=== PATIENT | male | born 1990 | race Caucasian/White ===

== ENCOUNTER 2016-08-08 07:27 | Emergency (ER) | payer OTHER ==
[2016-08-08 07:58] VITALS: BP 124/86
--- NOTE | 2016-08-08 08:32 | RAD ---
Indication: Nasal injury. 3 views of the nasal bones demonstrates incongruity of the nasal arch. A nondisplaced fracture should be considered. IMPRESSION: There may be undisplaced fracture of the nasal arch.
--- NOTE | 2016-08-08 09:59 | UC ---
Melly Mcmillan [place], [facility]ed for [facility] on 08/08/16 at 0805 . Minor Trauma HPI - HPI Summary HPI Summary: In Room note: Patient is a 26 y/o male who presents to the s/p trauma to the nose since earlier today. Pt was playing with his dog when his dog ran into his nose and pt heard a crunch. He reports edema and a crooked appearance. Pt denies past injury to nose. Pt also denies hx of hospitalization. MD note: VSS, 3/10 pain, nonsmoker, visit hx non-contributory. Nurses note: About 30 min ago pt's dog ran into his nose and he heard a "crunch." pt denies bleeding, but some bruising is noted. - History of Current Complaint Chief Complaint: UCTrauma Stated Complaint: NOSE INJURY Time Seen by Provider: 08/08/16 08:02 Hx Obtained From: Patient Onset/Duration: Gradual Onset, Lasting Hours, Still Present Severity Initially: Moderate Severity Currently: Moderate Pain Intensity: 3 Pain Scale Used: 0-10 Numeric Mechanism Of Injury: Blunt Trauma Aggravating Factor(s): Nothing Alleviating Factor(s): Nothing Associated Signs And Symptoms: Positive: Swelling - Allergies/Home Medications Allergies/Adverse Reactions: Allergies Allergy/AdvReac Type Severity Reaction Status Date / Time No Known Allergies Allergy Verified 08/08/16 07:58 Home Medications: Home Medications NK [No Home Medications Reported] 08/08/16 [History Confirmed 08/08/16] PMH/Surg Hx/FS Hx/Imm Hx Endocrine History Of: Denies: Diabetes Cardiovascular History Of: Denies: Hypertension, Pacemaker/ICD Respiratory History Of: Denies: Asthma - Surgical History Surgical History: Yes Surgery Procedure, Year, and Place: HERNIA REPAIR INFANT - Family History Known Family History: Positive: Cardiac Disease, Other - [place]. - Social History Alcohol Use: Occasionally Substance Use Type: None Smoking Status (MU): Never Smoked Tobacco Review of Systems Constitutional: Negative ENT: Other - Injury to nose. See HPI. All Other Systems Reviewed And Are Negative: Yes Physical Exam Triage Information Reviewed: Yes Appearance: Well-Appearing, No Pain Distress, Well-Nourished Vital Signs: Initial Vital Signs Temp 97.9 F 08/08/16 07:54 Pulse 53 08/08/16 07:54 Resp 16 08/08/16 07:54 BP 124/86 08/08/16 07:54 Pulse Ox 100 08/08/16 07:54 Vital Signs Reviewed: Yes Eyes: Positive: Conjunctiva Clear ENT: Positive: Hearing grossly normal, Pharynx normal, TMs normal, Other: - NOSE : MILD BILATERAL SWELLING AND THE SUGGESTION OF SLIGHT DISTRACTION OF THE NASAL BRIDGE TO THE LEFT, BUT THIS IS DIFFICULT TO APPRECIATE DUE TO SWELLING. THERE IS NO EPISTAXIS, BOTH NARES ARE CLEAR AND THERE NO SIGN OF OBSTRUCTION OR HEMATOMA. BREATHING NORMAL TO BOTH NARES. NO INJURY TO JAW MAXILLARY OR MANDIBLE.. Negative: Muffled/hoarse voice Neck: Positive: Supple, No Lymphadenopathy Respiratory: Positive: Chest non-tender, Lungs clear, Normal breath sounds, No respiratory distress Cardiovascular: Positive: RRR, No Murmur Abdomen Description: Positive: Nontender, No Organomegaly, Soft Bowel Sounds: Positive: Present Musculoskeletal: Positive: Strength Intact Neurological: Positive: Alert Psychological: Positive: Age Appropriate Behavior Skin: Negative: rashes Diagnostics - Radiology NASAL BONE Radiology Interpretation Completed By: Radiologist - IMPRESSION: There may be undisplaced fracture of the nasal arch. Minor Trauma Course/Dx - Course Course Of Treatment: Medications have been included in the original chart and reviewed. Differential: Contusion vs fracture. Patient is Urgent/Emergent. BP elevated due to current condition w/o HTN in PMH. - Differential Dx/Diagnosis Provider Diagnoses: Nondisplaced fracture of nasal arch. Discharge - Discharge Plan Condition: Stable Disposition: HOME Patient Education Materials: Nasal Fracture (ED) Referrals: No Primary Care Phys,NOPCP [Primary Care Provider] - Additional Instructions: Thank you for helping us improve patient care by filling out the My Point Survey. WE DISCUSSED: Unless you have any complications (see discharge information), this is a cosmetic question, as to whether you need your nose straightened. It may be slightly pushed to the left but it's difficult to tell because of the swelling. Use ice to the area for the swelling. My suggestion is that you call and ENT physician, if you wish follow up. CALL THIS NUMBER AT THE HOSPITAL AND THEY WILL GIVE YOU THE NUMBER OF AN ENT PHYSICIAN: [phone]. Call us for any new symptoms, questions or concerns. The documentation as recorded by the Melly moyer Salem accurately reflects the service I personally performed and the decisions made by me, Brayden Blanton MD.
== END 2016-08-08 09:00 | disposition home or self-care (01) ==
LOC: UCEAST 07:27
DX: S02.2XXA Fracture of nasal bones, initial encounter for closed fracture (principal); X58.XXXA Exposure to other specified factors, initial encounter; Y93.K9 Activity, other involving animal care
CPT/HCPCS: 70160; 99211; G0463